=== PATIENT | male | born 1945 | race Caucasian/White ===

== ENCOUNTER → 2017-06-23 | Day surgery (SDC) | payer OTHER ==
[~2017-06-23] VITALS: Ht 167.6 cm; Wt 83.0 kg
[~2017-06-23] MED LIST: DITROPAN XL5 MG PO; FLOMAX0.4 MG PO; NORCO 5-325 TA1 EACH PO; OXYBUTYNIN5 MG PO; PRILOSEC20 M1 PO; PYRIDIUM200 M1 PO; TRAZODONE50 MG PO
--- NOTE | ~2017-06-23 | O ---
[place], [place] OPERATIVE NOTE NAME: [facility]AB[facility]ELE [facility]ARTINES [facility] [id number] UNIT #: [id number] ROOM: DOCTOR: POOJA DAVID MD BIRTHDATE: [birth year] DOS: 06/23/2017 PROCEDURES: 1. Esophagogastroduodenoscopy and biopsy. 2. Colonoscopy and polypectomy. INDICATIONS: GERD and colon cancer screening. Informed consent was obtained from the patient after indication of procedures, the alternatives and potential complications were explained to her. PROCEDURE MEDICATIONS: Sedation was administered by Anesthesiology Department. SCOPES USED: For upper endoscopy Olympus diagnostic adult upper endoscope GIF-180, depth of insertion was to the descending duodenum. For the colonoscopy, the scope used was Olympus diagnostic adult colonoscope variable stiffness GIF-180, depth of insertion was to the cecum, which was identified by the usual landmarks, appendiceal orifice, ileocecal valve and triangular fold, in addition to transillumination in the right lower quadrant. FINDINGS: After adequate sedation, the patient was placed in left lateral decubitus position. Upper endoscopy was performed first. The scope was introduced under direct visualization through the upper esophageal sphincter into the esophagus. Esophageal mucosa appeared normal with no ulcerations or strictures. Lower esophageal sphincter was identified at 38 cm from incisors with normal appearing Z line. Stomach was then intubated. Gastric mucosa inspected, severe gastritis was seen, with no discrete ulcers or active bleeding. A CLOtest was performed from the gastric antrum and body. On retroflexed views in the fundus, no hiatal hernia was seen. Pylorus was intubated easily. The duodenal bulb and descending duodenum were within normal range. The scope was then withdrawn after the stomach was decompressed. We then proceeded with a colonoscopy. Rectal examination showed a diminished sphincter tone and no external hemorrhoids. Scope was introduced into the rectum and then advanced to the cecum with no difficulty. The prep was adequate. A 6-mm diminutive polyp was identified in the proximal transverse colon. The polyp was removed with cold mini snare and recovered. The remaining colon mucosa appeared otherwise normal with no evidence of diverticula, other polyps or obstructing lesions. Retroflex views in the rectum were unremarkable. The scope was then withdrawn after the rectum was decompressed. The patient tolerated the procedure well. IMPRESSION: 1. Severe gastritis, CLOtest performed. 2. Diminutive transverse colon polyp. The patient had a polypectomy performed. 3. Normal colon mucosa otherwise. PLAN: We will review the JENNIFER test and histopathology reports. Treat the patient accordingly. Office followup will be scheduled in 2-3 weeks. [place], [place] OPERATIVE NOTE NAME: GABRIELE MARTINES UNIT #: [id number] ROOM: DOCTOR: POOJA DAVID MD BIRTHDATE: [birth year] POOJA ADVID MD CM:OPRECORD:OPERATIVE NOTE [id number] POOJA DAVID MD 06/23/17 1036 interface
[2017-06-23 08:00] VITALS: BP 143/76
[2017-06-23 09:08] VITALS: BP 114/76
[2017-06-23 09:23] VITALS: BP 104/73
[2017-06-23 09:40] VITALS: BP 113/70
== END ==
LOC: SDC 06-20 14:45
DX: Z12.11 Encounter for screening for malignant neoplasm of colon (principal); D12.2 Benign neoplasm of ascending colon; K21.9 Gastro-esophageal reflux disease without esophagitis; K29.50 Unspecified chronic gastritis without bleeding; Z85.51 Personal history of malignant neoplasm of bladder; Z87.891 Personal history of nicotine dependence

== ENCOUNTER → 2018-07-18 | Day surgery (SDC) | payer OTHER ==
[~2018-07-18] VITALS: Ht 167.6 cm; Wt 83.0 kg
[~2018-07-18] MED LIST changes: +ALEVE220 M1 PO
--- NOTE | ~2018-07-18 | O ---
[place], [place] OPERATIVE NOTE NAME: GABRIELE MARTINES UNIT #: [id number] ROOM: DOCTOR: FELI RICHTER MD BIRTHDATE: [birth year] DOS: 07/18/2018 PREOPERATIVE DIAGNOSIS: Cataract, right eye. POSTOPERATIVE DIAGNOSIS: Cataract, right eye. OPERATION: Extracapsular cataract extraction by phacoemulsification with posterior chamber intraocular lens implantation, right eye. ANESTHESIA: Monitored standby. OPERATIVE FINDINGS AND PROCEDURE: 2% Xylocaine topical anesthetic gel was applied to the eye in the preop area. The patient was taken to the operating room. Chlorhexidine scrub was used to prepare the area around the right eye for surgery. The patient was then draped in the standard fashion for sterile intraocular surgery. A time out procedure was performed verifying correct patient, correct site and corrects lens with Fox Richter MD The operating microscope was swung into position and the lid speculum was inserted. Using a Yamel paracentesis blade, a paracentesis was made through clear cornea. Viscoelastic was used to fill the anterior chamber. Using a metal keratome a 2.4 mm self-sealing clear corneal cataract incision was made temporally at the limbus. Using a pre-bent 25 gauge cystotome needle, a standard continuous curvilinear capsulorrhexis was performed. The anterior capsule was removed with forceps. The lens nucleus was hydrodissected and phacoemulsified in the posterior chamber. Cortical material was removed with the irrigation aspiration hand piece and the posterior capsule was then polished with a curet under irrigation. The posterior chamber and capsular bag were filled with viscoelastic. A posterior chamber intraocular lens manufactured by: [employer], Model #[id number] and 20.0 diopters in strength were then inserted into the posterior chamber and within the capsular bag using the lens cartridge and injector system. Viscoelastic was removed using the irrigation aspiration handpiece. The anterior chamber was filled with balanced salt solution through the paracentesis. Both the paracentesis site and cataract incisions were hydrated with BSS and verified to be water-tight and self-sealing. Cefuroxime 1 mg/0.1 mL was injected into the anterior chamber through the paracentesis site. The incision checked to be water-tight using a Weck-Isa sponge. The integrity of the cataract wound and ocular tension were checked. Lid speculum and drapes were removed. The patient was transferred from the operating room to the recovery room in satisfactory condition. [place], [place] OPERATIVE NOTE NAME: GABRIELE MARTINES UNIT #: [id number] ROOM: DOCTOR: FELI RICHTER MD BIRTHDATE: [birth year] FELI RICHTER MD CM:OPRECORD:OPERATIVE NOTE [id number] FELI RICHTER MD 07/18/18 1459 interface
[2018-07-18 09:45] VITALS: BP 138/70
[2018-07-18 11:06] VITALS: BP 146/91
[2018-07-18 11:21] VITALS: BP 141/91
[2018-07-18 11:36] VITALS: BP 135/86
== END | disposition home or self-care (01) ==
LOC: SDC 07-13 09:30
DX: H25.811 Combined forms of age-related cataract, right eye (principal); K21.9 Gastro-esophageal reflux disease without esophagitis; Z91.041 Radiographic dye allergy status; Z79.899 Other long term (current) drug therapy; Z87.891 Personal history of nicotine dependence; Z98.890 Other specified postprocedural states; Z85.51 Personal history of malignant neoplasm of bladder

== ENCOUNTER → 2018-08-22 | Day surgery (SDC) | payer OTHER ==
[~2018-08-22] VITALS: Ht 170.6 cm; Wt 83.0 kg
--- NOTE | ~2018-08-22 | O ---
[place], [place] OPERATIVE NOTE NAME: GABRIELE MARTINES UNIT #: [id number] ROOM: DOCTOR: FELI RICHTER MD BIRTHDATE: [birth year] DOS: 08/22/2018 PREOPERATIVE DIAGNOSIS: Cataract, left eye. POSTOPERATIVE DIAGNOSIS: Cataract, left eye. OPERATION: Extracapsular cataract extraction by phacoemulsification with posterior chamber intraocular lens implantation, left eye. ANESTHESIA: Monitored standby. OPERATIVE FINDINGS AND PROCEDURE: 2% Xylocaine topical anesthetic gel was applied to the eye in the preop area. The patient was taken to the operating room and the patient was prepped and draped in the standard fashion for sterile intraocular surgery substituting chlorhexidine scrub for betadine because of BETADINE ALLERGY. A time out procedure was performed verifying correct patient, correct site and corrects lens with Fox Richter M.D. The operating microscope was swung into position and the lid speculum was inserted. Using a Yamel paracentesis blade, a paracentesis was made through clear cornea. Viscoelastic was used to fill the anterior chamber. Using a metal keratome a 2.4 mm self-sealing clear corneal cataract incision was made temporally at the limbus. Using a pre-bent 25 gauge cystotome needle, a standard continuous curvilinear capsulorrhexis was performed. The anterior capsule was removed with forceps. The lens nucleus was hydrodissected and phacoemulsified in the posterior chamber. Cortical material was removed with the irrigation aspiration hand piece and the posterior capsule was then polished with a curet under irrigation. The posterior chamber and capsular bag were filled with viscoelastic. A posterior chamber intraocular lens manufactured by: [employer], Model [id number], 21.0 diopters in strength were then inserted into the posterior chamber and within the capsular bag using the lens cartridge and injector system. Viscoelastic was removed using the irrigation aspiration handpiece. The anterior chamber was filled with balanced salt solution through the paracentesis. Both the paracentesis site and cataract incisions were hydrated with BSS and verified to be water-tight and self-sealing. Cefuroxime 1 mg/0.1 mL was injected into the anterior chamber through the paracentesis site. The incision checked to be water-tight using a Weck-Isa sponge. The integrity of the cataract wound and ocular tension were checked. Lid speculum and drapes were removed. The patient was transferred from the operating room to the recovery room in satisfactory condition. [place], [place] OPERATIVE NOTE NAME: GABRIELE MARTINES UNIT #: [id number] ROOM: DOCTOR: FELI RICHTER MD BIRTHDATE: [birth year] FELI RICHTER MD CM:OPRECORD:OPERATIVE NOTE 1044 [id number] FELI RICHTER MD 08/22/18 1142 interface
[2018-08-22 09:30] VITALS: BP 132/86
[2018-08-22 10:12] VITALS: BP 131/87
[2018-08-22 10:26] VITALS: BP 125/82
[2018-08-22 10:42] VITALS: BP 119/80
== END | disposition home or self-care (01) ==
LOC: SDC 08-16 12:30
DX: H25.812 Combined forms of age-related cataract, left eye (principal); K21.9 Gastro-esophageal reflux disease without esophagitis; F17.210 Nicotine dependence, cigarettes, uncomplicated; Z98.41 Cataract extraction status, right eye; Z96.1 Presence of intraocular lens; Z88.3 Allergy status to other anti-infective agents; Z79.899 Other long term (current) drug therapy; Z85.51 Personal history of malignant neoplasm of bladder; Z98.890 Other specified postprocedural states; Z91.041 Radiographic dye allergy status

== ENCOUNTER → 2019-08-02 | Outpatient (CLI) | payer OTHER ==
[2019-08-02 11:47] LABS: BASO # 0.1 10*3/uL (0.0-0.1); BASO % 1.5 % (0.0-1.0); EOS # 0.2 10*3/uL (0.0-0.4); EOS % 2.4 % (1.0-4.0); HEMATOCRIT 48.4 % (42.0-52.0); LYMPH # 2.8 10*3/uL (1.3-4.4); LYMPH % 31.2 % (27.0-41.0); MEAN CELL VOLUME 88.5 fl (80.0-94.0); MEAN CORPUSCULAR HGB 29.3 pg (27.0-31.0); MEAN CORPUSCULAR HGB CONC 33.1 g/dl (33.0-37.0); MEAN PLATELET VOLUME 10.2 fl (9.6-12.3); MONO # 1.3 10*3/uL (0.1-1.0); MONO % 14.4 % (3.0-9.0); NEUT # 4.5 10*3/uL (2.3-7.9); NEUT % 50.3 % (47.0-73.0); PLATELET COUNT AUTOMATED 263 10*3/uL (130-400); RED BLOOD COUNT 5.47 10*6/uL (4.50-5.90); WHITE BLOOD COUNT 8.9 10*3/uL (4.8-10.8)
[2019-08-02 12:03] LABS: BILIRUBIN NEGATIVE (NEGATIVE); BLOOD 3+ (NEGATIVE); CLARITY SL CLOUDY (CLEAR); COLOR STRAW (YELLOW); GLUCOSE NEGATIVE (NEGATIVE); KETONE NEGATIVE (NEGATIVE); LEUKO ESTERASE NEGATIVE (NEGATIVE); NITRITE NEGATIVE (NEGATIVE); UROBILINOGEN 0.2 E.U./dl (0.2-1.0)
[2019-08-02 12:04] LABS: BACTERIA 1+; MUCOUS 3+
[2019-08-02 12:14] LABS: ALBUMIN 4.1 gm/dl (3.1-4.5); CREATININE 1.5 mg/dL (0.70-1.30)
[2019-08-02 12:21] LABS: THYROID STIM HORMONE (HS) 3.08 uIU/ml (0.358-4.75)
[2019-08-02 12:43] LABS: FERRITIN 125.1 ng/mL (22.0-322.0); VITAMIN D, 25-HYDROXY 17.2 ng/mL (30-100)
== END | disposition home or self-care (01) ==
LOC: LAB 11:14
PROVIDERS: Family Medicine
DX: R53.83 Other fatigue (principal); R79.89 Other specified abnormal findings of blood chemistry; E55.9 Vitamin D deficiency, unspecified; Z79.899 Other long term (current) drug therapy

== ENCOUNTER → 2019-09-10 | Outpatient (CLI) | payer OTHER ==
[2019-09-10 09:09] LABS: ALBUMIN 3.8 gm/dl (3.1-4.5); BUN 19 mg/dl (7-24); CHLORIDE 107 mmol/L (98-107); CREATININE 1.28 mg/dL (0.70-1.30); PHOSPHOROUS 2.6 mg/dL (2.5-4.9); POTASSIUM 4.7 mmol/L (3.5-5.1); SODIUM 140 mmol/L (136-145)
[2019-09-10 10:18] LABS: BILIRUBIN NEGATIVE (NEGATIVE); BLOOD 3+ (NEGATIVE); CLARITY SL CLOUDY (CLEAR); COLOR YELLOW (YELLOW); GLUCOSE NEGATIVE (NEGATIVE); KETONE NEGATIVE (NEGATIVE); LEUKO ESTERASE NEGATIVE (NEGATIVE); NITRITE NEGATIVE (NEGATIVE); UROBILINOGEN 0.2 E.U./dl (0.2-1.0)
[2019-09-10 10:30] LABS: BACTERIA TRACE; RBC 21-30 rbc/hpf (0-2)
[2019-09-10 10:31] LABS: MUCOUS TRACE
[2019-09-10 13:50] LABS: PTH INTACT 108.1 pg/mL (18.5-88.0); VITAMIN D, 25-HYDROXY 15.6 ng/mL (30-100)
== END | disposition home or self-care (01) ==
LOC: LAB 08:18
PROVIDERS: Internal Medicine Nephrology
DX: N25.81 Secondary hyperparathyroidism of renal origin (principal); N18.3 Chronic kidney disease, stage 3 (moderate); Z79.899 Other long term (current) drug therapy

== ENCOUNTER → 2020-05-29 | Outpatient (CLI) | payer OTHER ==
[2020-05-29 11:05] LABS: BILIRUBIN Negative (Negative); BLOOD 2+ (Negative); CLARITY Clear (Clear); COLOR Yellow (Yellow); GLUCOSE Negative (Negative); KETONE Negative (Negative); LEUKO ESTERASE Negative (Negative); NITRITE Negative (Negative); UROBILINOGEN 0.2 E.U./dl (0.0-1.0)
[2020-05-29 11:29] LABS: ALBUMIN 3.7 gm/dl (3.1-4.5); BUN 16 mg/dl (7-24); CHLORIDE 109 mmol/L (98-107); SODIUM 141 mmol/L (136-145)
[2020-05-29 11:53] LABS: PTH INTACT 82.8 pg/mL (18.5-88.0); VITAMIN D, 25-HYDROXY 102.6 ng/mL (30-100)
[2020-05-29 12:15] LABS: RBC 16-20 rbc/hpf (0-2)
[2020-05-29 12:20] LABS: BACTERIA TRACE
== END | disposition home or self-care (01) ==
LOC: LAB 10:11
PROVIDERS: ATTEND Internal Medicine Nephrology
DX: N18.30 Chronic kidney disease, stage 3 unspecified (principal); N25.81 Secondary hyperparathyroidism of renal origin; Z79.899 Other long term (current) drug therapy

== ENCOUNTER → 2021-08-04 | Outpatient (CLI) | payer OTHER ==
[2021-08-04 09:01] LABS: CREATININE 1.48 mg/dL (0.70-1.30); POTASSIUM 3.9 mmol/L (3.5-5.1)
[2021-08-04 09:52] LABS: BILIRUBIN Negative (Negative); BLOOD 2+ (Negative); CLARITY Clear (Clear); COLOR Yellow (Yellow); GLUCOSE Negative (Negative); KETONE Negative (Negative); LEUKO ESTERASE Negative (Negative); NITRITE Negative (Negative); PH 5.5 (4.5-8.0); UROBILINOGEN 0.2 E.U./dl (0.0-1.0)
[2021-08-04 13:48] LABS: URINE CREATININE RANDOM 43.8 mg/dL
== END | disposition home or self-care (01) ==
LOC: LAB 08:21
PROVIDERS: ATTEND Internal Medicine Nephrology
DX: N18.30 Chronic kidney disease, stage 3 unspecified (principal); N25.81 Secondary hyperparathyroidism of renal origin; Z79.899 Other long term (current) drug therapy

== ENCOUNTER → 2021-11-19 | Outpatient (CLI) | payer OTHER ==
[~2021-11-19] MED LIST changes: +HYDROXYZINE HCL25 MG PO; +LISINOPRIL10 M1 PO
== END | disposition home or self-care (01) ==
LOC: CARD 00:05
PROVIDERS: ATTEND Internal Medicine
DX: R06.02 Shortness of breath (principal); R53.81 Other malaise

== ENCOUNTER → 2021-12-14 | Outpatient (CLI) | payer OTHER | END | disposition home or self-care (01) | LOC: CARD 15:00 | PROVIDERS: ATTEND Family Medicine | DX: I08.3 Combined rheumatic disorders of mitral, aortic and tricuspid valves (principal) ==

== ENCOUNTER 2023-12-08 16:11 | Emergency (ER) | payer OTHER ==
[~2023-12-08] VITALS: Ht 167.6 cm; Wt 83.5 kg
[2023-12-08] MEDS ORDERED: SODIUM CHLORIDE 0.9% 1,000 ML IV ONE (16:50)
[2023-12-08 17:31] LABS: BASO # 0.1 10*3/uL (0.0-0.1); BASO % 0.8 % (0.0-1.0); EOS # 0.4 10*3/uL (0.0-0.4); LYMPH # 2.4 10*3/uL (1.3-4.4); LYMPH % 18.3 % (27.0-41.0); MEAN CELL VOLUME 95.4 fl (80.0-94.0); MEAN CORPUSCULAR HGB 30.5 pg (27.0-31.0); MONO # 1.5 10*3/uL (0.1-1.0); MONO % 11.5 % (3.0-9.0); NEUT # 8.5 10*3/uL (2.3-7.9); NEUT % 65.6 % (47.0-73.0); PLATELET COUNT AUTOMATED 449 10*3/uL (130-400); RED BLOOD COUNT 3.67 10*6/uL (4.50-5.90); RED CELL DISTRI WIDTH 13.2 % (0-14.5); WHITE BLOOD COUNT 12.9 10*3/uL (4.8-10.8)
[2023-12-08 17:32] LABS: POTASSIUM 4.3 mmol/L (3.4-5.1)
== END 2023-12-08 19:27 | disposition home or self-care (01) ==
LOC: ED 16:11
PROVIDERS: Emergency Medicine
DX: I95.9 Hypotension, unspecified (principal); R42 Dizziness and giddiness; N18.30 Chronic kidney disease, stage 3 unspecified; Z91.041 Radiographic dye allergy status; Z98.890 Other specified postprocedural states

== ENCOUNTER → 2024-11-28 | Day surgery (SDC) | payer OTHER ==
[~2024-11-28] VITALS: Ht 170.1 cm; Wt 81.6 kg
[~2024-11-28] MED LIST changes: +CLARITIN10 MG PO; +Ketamine Hydrochloride 50 MG/5 ML SYRINGE IV ONE; +Lactated Ringer's Solution 1,000 ML IV ONE; +Lidocaine Hydrochloride 30 ML VIAL ONE; +Lidocaine Hydrochloride 5 ML VIAL IV ONE; +Midazolam Hydrochloride 2 MG/2 ML VIAL IV ONE; +PERCOCET 5-3251 EACH PO; +PROPOFOL 200 MG/20 ML VIAL IV ONE; +ROSUVASTATIN CA20 MG PO; +TYLENOL EXTRA500 M2 PO; +VITAMIN B-121000 MC1 SL; +VITAMIN D325 MCG PO
[2024-11-28 07:20] VITALS: BP 143/90
[2024-11-28 08:15] VITALS: BP 139/84
[2024-11-28 08:30] VITALS: BP 144/95
[2024-11-28 08:43] VITALS: BP 152/80
== END | disposition home or self-care (01) ==
LOC: SDC 11-25 11:00
PROVIDERS: ATTEND Surgery
DX: L72.0 Epidermal cyst (principal); E78.00 Pure hypercholesterolemia, unspecified; N18.9 Chronic kidney disease, unspecified; Z87.891 Personal history of nicotine dependence; Z90.89 Acquired absence of other organs; Z96.651 Presence of right artificial knee joint; Z85.51 Personal history of malignant neoplasm of bladder; Z98.890 Other specified postprocedural states; Z79.899 Other long term (current) drug therapy; Z91.040 Latex allergy status; Z91.018 Allergy to other foods; Z91.041 Radiographic dye allergy status; Z88.8 Allergy status to other drugs, medicaments and biological substances; Z83.3 Family history of diabetes mellitus; Z82.49 Family history of ischemic heart disease and other diseases of the circulatory system